=== PATIENT | female | born 1975 | race Asian ===

== ENCOUNTER 2017-03-03 07:16 | Inpatient (IN) | payer MEDICAID, SELFPAY ==
[~2017-03-03] VITALS: Ht 167.6 cm; Wt 73.9 kg
[2017-03-03] MEDS ORDERED: METHYLERGONOVINE 0.2 MG/ML AMP IM PRN (08:00)
[2017-03-03] MEDS ORDERED: SODIUM PHOSPHATE 118 ML ENEM RC PRN (08:00)
[2017-03-03] MEDS ORDERED: MEASLES, MUMPS, AND RUBELLA 1 VIAL SQVAC PRN (08:00)
[2017-03-03] MEDS ORDERED: TEMAZEPAM 15 MG CAP PO PRN (08:00)
[2017-03-03] MEDS ORDERED: BENZOCAINE/MENTHOL 20%-0.5% 60 GM CAN TP PRN (08:00)
[2017-03-03] MEDS ORDERED: IBUPROFEN 800 MG TAB PO PRN (08:00)
[2017-03-03] MEDS ORDERED: OXYTOCIN 10 UNITS/ML VIAL IM PRN (08:00)
[2017-03-03] MEDS ORDERED: WITCH HAZEL 40 PAD PACKAGE TP PRN (08:00)
[2017-03-03] MEDS ORDERED: oxyCODONE/APAP 5/325 MG 1 TAB TAB PO PRN (08:00)
[2017-03-03] MEDS ORDERED: HYDROcodone/APAP 5/325 MG 1 TAB TAB PO PRN (08:00)
[2017-03-03] MEDS ORDERED: LIDOCAINE 2% 1000 MG/50 ML VIAL INJ ONE (08:13)
[2017-03-03] MEDS ORDERED: DOCUSATE SOD/SENNA 50/8.6 MG 1 TAB PO SCH (21:00)
--- NOTE | 2017-03-04 08:37 | NUR ---
PATIENT HAS BEEN SCREENED AND CATEGORIZED LOW NUTRITION RISK. PATIENT WILL BE SEEN WITHIN 7 DAYS OF ADMISSION. 03/09/[address]
[2017-03-05] MEDS ORDERED: AMPICILLIN 2,000 MG VIAL ONE (03:18)
[2017-03-05] MEDS ORDERED: MOTRIN600 MG PO (13:29)
== END 2017-03-05 16:20 | disposition home or self-care (01) | DRG 560 ==
LOC: MLD 07:16 → MFCC 11:30
PROVIDERS: ADMIT Obstetrics & Gynecology; ATTEND Obstetrics & Gynecology
PROC: 10E0XZZ Delivery of Products of Conception, External Approach (ICD-10-PCS; principal; 2017-03-04)
DX: O75.89 Other specified complications of labor and delivery (principal); Z37.0 Single live birth; Z3A.38 38 weeks gestation of pregnancy; Z28.21 Immunization not carried out because of patient refusal; O09.513 Supervision of elderly primigravida, third trimester

== ENCOUNTER 2017-07-22 11:37 | Emergency (ER) | payer MEDICAID ==
[~2017-07-22] VITALS: Ht 167.6 cm; Wt 66.5 kg
[~2017-07-22 11:37] MED LIST: IBUP-2213 PO
[2017-07-22 11:51] VITALS: BP 134/81
[2017-07-22 12:47] LABS: CARBON DIOXIDE 26.8 mmol/L (21-32); CREATININE 0.8 mg/dL (0.6-1.3); POTASSIUM 3.8 mmol/L (3.5-5.1)
[2017-07-22 12:50] LABS: BASOPHILS # (AUTO) 0.1 K/uL (0.00-0.22); BASOPHILS % (AUTO) 1.7 % (0.0-2.0); EOSINOPHILS # (AUTO) 0.1 K/uL (0-0.4); EOSINOPHILS % (AUTO) 1.9 % (0.0-4.0); HEMATOCRIT 36.6 % (36-48); HEMOGLOBIN 12.3 g/dL (12.0-16.0); LYMPHOCYTES # (AUTO) 1.4 K/uL (2.5-16.5); LYMPHOCYTES % (AUTO) 23.9 % (20.5-51.1); MEAN CORPUSCULAR HEMOGLOBIN 29 pg (27-31); MEAN CORPUSCULAR HGB CONC 34 g/dL (33-37); MEAN CORPUSCULAR VOLUME 85 fL (80-94); MONOCYTES # (AUTO) 0.4 K/uL (0.8-1.0); NEUTROPHILS # (AUTO) 3.9 K/uL (1.8-7.7); NEUTROPHILS % (AUTO) 65.5 % (42.2-75.2); PLATELET COUNT (AUTO) 207 K/uL (140-450); RED BLOOD CELL COUNT(AUTO) 4.28 MIL/uL (4.20-5.40); RED CELL DISTRIBUTION WIDTH 13.7 % (11.6-13.7); WHITE BLOOD COUNT (AUTO) 5.9 K/uL (4.8-10.8)
[2017-07-22 12:53] LABS: ALBUMIN 3.6 g/dL (3.4-5.0); TOTAL BILIRUBIN 0.6 mg/dL (0.0-1.0)
[2017-07-22 13:00] LABS: PROTHROMBIN TIME 10.5 secs (10.8-13.4)
[2017-07-22] MEDS ORDERED: methylPREDNISolone SS 125 MG in WATER STERILE 2 ML IM ONE (13:40)
[2017-07-22] MEDS ORDERED: methylPREDNISolone SS 125 MG/2 ML VIAL IVP ONE (13:55)
[2017-07-22 14:10] VITALS: BP 108/78
== END 2017-07-22 14:18 | disposition home or self-care (01) ==
LOC: MED 11:37
DX: R29.810 Facial weakness (principal); R53.1 Weakness; Z88.2 Allergy status to sulfonamides
CPT/HCPCS: 36415; 70450; 80053; 81025; 85025; 85610; 85730; 96372; 99285; J2930